=== PATIENT | female | born 1980 | race Caucasian/White ===

== ENCOUNTER 2017-11-25 12:50 | Observation (INO) ==
--- NOTE | 2017-11-25 08:55 | Anesthesia Evaluation PreOp ---
<Tito Hayes - Last Filed: 11/25/17 08:53> Date of Encounter: 11/25/17 - Past History Planned Operation: Removal Hardware Right Ankle Medications and Allergies Benztropine Mesylate 2 mg DAILY 11/25/17 [History] BuPROPion SR (12 HR) [Wellbutrin SR] 300 mg DAILY 11/25/17 [History] Cyproheptadine HCl 4 mg DAILY 11/25/17 [History] Levothyroxine Sodium 75 mcg DAILY 11/25/17 [History] Lyrica 150 mg BID 11/25/17 [History] Metformin HCl [Glucophage] 1,000 mg DAILY 11/25/17 [History] Mirtazapine [Remeron] 30 mg PO DAILY 11/25/17 [History] Montelukast Sodium [Singulair] 10 mg PO DAILY 11/25/17 [History] Perphenazine 16 mg DAILY 11/25/17 [History] Sertraline [Zoloft] 200 mg PO DAILY 11/25/17 [History] 3 Allergy/AdvReac Type Severity Reaction Status Date / Time acetaminophen [From Vicodin] Allergy Itching Verified 11/22/17 08:53 hydrocodone [From Vicodin] Allergy Itching Verified 11/22/17 08:53 latex Allergy Redness of Verified 11/22/17 08:58 Skin Poison Mae Extract Allergy Rash Verified 11/22/17 08:52 cephalexin AdvReac Diarrhea Verified 11/22/17 08:52 NSAIDS (Non-Steroidal AdvReac ulcer Verified 11/22/17 08:52 Anti-Inflamma pantoprazole [From Protonix] AdvReac Diarrhea Verified 11/22/17 08:52 - Meds/Allergy Pre-op Review Medications Reviewed: Yes Allergies Reviewed: Yes Beta Blockers on Current Med List: No Anesthesia Results - Labs Laboratory Tests 11/22/17 09:00 WBC 7.5 Hgb 11.2 L Hct 38.1 Plt Count 223 - Imaging EKG: report reviewed (11/22/2017 SINUS RHYTHM MODERATE INTRAVENTRICULAR CONDUCTION DELAY) <Tammi Orellana - Last Filed: 11/25/17 14:21> Date of Encounter: 11/25/17 Time of Encounter: 14:20 - Past History Pulmonary History: SAMINA Dx, Other [employer] History: Other (depression, diabetic neuropathy) Other Medical History: Denies Any Significant HX, Diabetes Type II, Other ( super morbid obesity., failed gastric bypass) Anesthesia History: No Prior Anesthetic Complications, Past Anesthesia Alcohol Use: none Drug use: none - Meds/Allergy Pre-op Review Medications Reviewed: Yes Allergies Reviewed: Yes Beta Blockers on Current Med List: No Anesthesia Results - Imaging EKG: report reviewed Anesthesia Exam Selected Entries 11/25/17 13:51 Temperature 98.9 F Pulse Rate 76 Respiratory Rate 18 Blood Pressure 144/99 O2 Sat by Pulse Oximetry 98 Weight: 201 kl BMI 74 NPO (# of Hours): over 8 hours - HEENT Pupil (Motor): Pupils equal Mallampati: II Teeth: Edentulous Oral Opening: Greater than 3 - Cardiac Rhythm: Regular Murmur: None - Pulmonary Breath Sounds: bilateral Clear Respiratory Effort: Symmetrical Anesthesia Assess/Plan ASA Score: 3 Modified Mo Scale for Level of Consciousness: Cooperative, oriented, and tranquil Anesthetic Plan: General, Regional, MAC Monitoring Plan: Standard Monitors Recovery Plan: PACU (Consented for both MAC and GA. Patient receptive to regional block and sedation for surgery. SHe has had this before. Agreed to proceed.)
[2017-11-25] MEDS ORDERED: Clindamycin 900 MG/50 ML 900 MG/50 ML IV.SOLN IVPB ONE (13:45)
[2017-11-25] MEDS ORDERED: *HR* Midazolam HCl 5 MG/5 ML VIAL IVP ONE (13:55)
[2017-11-25] MEDS ORDERED: Lidocaine -MPF 2% 2 ML VIAL ONE (13:55)
[2017-11-25] MEDS ORDERED: Propofol 500 MG/50 ML INFUS..BTL ONE (13:57)
[2017-11-25] MEDS ORDERED: Ketamine *HR* 500 MG/10 ML MDV ONE (14:03)
[2017-11-25] MEDS ORDERED: Dexmedetomidine HCl 400 MCG/100 ML MLS IVC ONE (14:03)
[2017-11-25] MEDS ORDERED: Dexamethasone 4 MG/ML VIAL ONE ×3 (14:07→16:41)
[2017-11-25] MEDS ORDERED: *HR* Propofol 200 MG/20 ML VIAL IVP ONE (14:07)
[2017-11-25] MEDS ORDERED: Ondansetron 4 MG/2 ML VIAL ONE ×2 (14:07→16:41)
[2017-11-25] MEDS ORDERED: Bupivacaine/Clonidine Syringe 1 EACH SYRINGE ONE ×2 (14:14→15:25)
[2017-11-25] MEDS: Ringers Solution, Lactated 1,000 ML IVC SCH ×2 (14:22→17:04)
[2017-11-25] MEDS ORDERED: ROPIVACAINE HCL/PF 0.5% 30 ML VIAL ONE (14:27)
--- NOTE | 2017-11-25 14:51 | History & Physical Report ---
Date of Encounter: 11/25/17 Time of Encounter: 14:49 24 Hour HP Update - Instructions Instructions: If the History and Physical is less than 30 days old and was completed prior to A.M. admission and or procedure and has NOT been updated on calendar day of procedure please complete this update prior to performing procedure. - Update Patient reports changes in Medical Condition: No Changes in examination, assessment, or condition: No Changes in Medication: No Preop tests/diagnostics Reviewed: No Pre-Op MRSA Screen: Negative Surgery Remains Indicated: Yes Consent for Planned Operative Procedure(s) Verified: Yes Additions to current History and Physical: Superficial scab anterior right leg. - Pre-Operative Checklist Preoperative Checklist Indicated: Yes Prophylactic Antibiotic Ordered: Yes Home Medications Include Beta Petra: No Beta Petra Taken Today (Day of Surgery): No Beta Petra Taken Yesterday (Day Prior to Surgery): No Is VTE Prophylaxis Indicated?: NO
--- NOTE | 2017-11-25 16:05 | Anesthesia Procedures ---
Date of Encounter: 11/25/17 Time of Encounter: 15:20 Procedures: Anesthesia - Nerve Block Procedure Date: 11/25/17 Time: 15:20 Surgical Procedure: right ankle hardware removal Checklist: Correct Patient Identifier, Correct procedure, History checked Correct side: Right Blood Thinner: No Monitor Applied: EKG, BP, Pulse Oximetry Supplemental Oxygen via Nasal Cannula (L/min): 2 Sedation: Versed (mg): 5 Indication: Post Op Analgesia Block Type: Popliteal Catheter placed: No Sterile Technique: Yes Ultrasound used: Yes Anatomy identified: Yes Visual spread of Local: Yes Neuro Stimulation: Yes Nerve Stimulator Range: 0.2 - 0.4 mA Blood on Needle Aspiration: No Smooth Injection of Local: Yes Pain with Injection of Local: No Prep: Chlorhexadine Needle: 21 x 100 mm Stimuplex Local: Ropivacaine (0.5% with 8 of decadron) Volume (cc): 30 Number of Attempts: 1 Complications: None/effective block Vitals: O2 Sat Height 1.65 m Height 1.65 m Height 1.65 m Weight 201.849 kg Weight 201.849 kg O2 Sat by Pulse Oximetry 97 O2 Sat by Pulse Oximetry 98 Vital Signs Temp Pulse Resp BP Pulse Ox 98.9 F 76 18 144/99 98 11/25/17 13:51 11/25/17 13:51 11/25/17 13:51 11/25/17 13:51 11/25/17 13:51
[2017-11-25] MEDS ORDERED: *HR* Succinylcholine 200 MG/10 ML VIAL IVP ONE (16:19)
[2017-11-25] MEDS ORDERED: *HR* HYDROmorphone (PF) 1 MG/ML SYRINGE IVP PRN (16:30)
[2017-11-25] MEDS ORDERED: *HR* Promethazine 25 MG/ML VIAL IVP PRN (16:30)
[2017-11-25] MEDS ORDERED: *HR* OxyCODONE Immed Rel 5 MG TABLET PO PRN ×3 (16:30→22:31)
[2017-11-25] MEDS ORDERED: *HR* Labetalol 20 MG/4 ML SYRINGE IVP PRN (16:30)
[2017-11-25] MEDS ORDERED: *HR* FentaNYL (PF) 100 MCG/2 ML VIAL ONE (16:37)
[2017-11-25] MEDS ORDERED: EPHEDrine 50 MG/ML VIAL ONE (16:49)
--- NOTE | 2017-11-25 20:18 | Discharge Summary ---
Outpatient Proc Discharge Plan - Plan Additional Instructions: Ice, elevate, remain in protective CAM walker boot. Weightbearing as tolerated in CAM boot. Keep dressing intact until post op visit one. Follow up in one week. Complete course of antibiotics as prescribed (Clindamycin). Take Oxycodone as needed for pain control. Call the office or report to the emergency room with any signs of infection including nausea, vomiting, fever, chills. Prescriptions: Oxycodone HCl [Oxaydo] 5 mg PO Q4HR PRN 5 Days #30 tablet.orl PRN Reason: Pain Clindamycin [Cleocin] 300 mg PO Q8HR 5 Days #15 capsule Home Medications: Benztropine Mesylate 2 mg DAILY 11/25/17 [History] BuPROPion SR (12 HR) [Wellbutrin SR] 300 mg DAILY 11/25/17 [History] Clindamycin [Cleocin] 300 mg PO Q8HR 5 Days #15 capsule 11/25/17 [Rx] Cyproheptadine HCl 4 mg DAILY 11/25/17 [History] Levothyroxine Sodium 75 mcg DAILY 11/25/17 [History] Lyrica 150 mg BID 11/25/17 [History] Metformin HCl [Glucophage] 1,000 mg DAILY 11/25/17 [History] Mirtazapine [Remeron] 30 mg PO DAILY 11/25/17 [History] Montelukast Sodium [Singulair] 10 mg PO DAILY 11/25/17 [History] Oxycodone HCl [Oxaydo] 5 mg PO Q4HR PRN 5 Days #30 tablet.orl 11/25/17 [Rx] Perphenazine 16 mg DAILY 11/25/17 [History] Sertraline [Zoloft] 200 mg PO DAILY 11/25/17 [History]
--- NOTE | 2017-11-25 20:29 | Orthopedic Operative Note ---
Date of procedure: 11/25/17 Pre-op diagnosis: Painful orthopedic hardware Post-op diagnosis: same Procedure: 11/25/17 20:27 Removal of hardware right ankle Anesthesia: GETA Local Anesthetics: 0.5% Sensorcaine HCL SubQ (cc) Surgeon: Kendell Carrington Was there an behavioral assistant present: No Estimated blood loss (cc): 150 Tourniquet Time (Minutes): 180 Specimen: none Condition: stable Disposition: PACU Procedure in Detail: 11/25/17 20:29 INDICATIONS AND CONSENT Eddie Chan is a 37 year old female who originally presented with right ankle pain. She was status post open reduction with internal fixation of a right pilon fracture that occurred in 2014. 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 She failed conservative treatment options and elected to proceed with hardware removal. We discussed the above procedures in detail. This included a discussion on the indications, contraindications, and possible complications including but not limited to: infection, non-healing wound, pain, swelling, bleeding, blood clots, heart complications, nerve injury , vascular injury, loss of limb, loss of life, arthritis, failure to removal all hardware, and need for further surgery. We also reviewed the expected post operative course, including a discussion on the weightbearing status after this procedure. She related understanding of our discussion regarding this surgery. All questions were answered to her satisfaction, and a proper written informed consent was obtained, signed, and placed in the chart. No guarantees were given , stated or implied, as to the outcome of this procedure. PROCEDURE IN DETAIL The patient was seen in the pre-operative holding area by Anesthesia where she was consented for General Anesthesia with regional popliteal fossa and saphenous nerve block. The popliteal fossa and saphenous nerve blocks were performed under ultrasound guidance by Anesthesia in the pre-operative holding area. The patient was then brought back to the operative suite and placed on the operating room table in the supine position. A sign-in was performed. General anesthesia was then initiated per Anesthesia protocol. A well-padded pneumatic right calf tourniquet was then placed. Next, the right lower leg was scrubbed, prepped, and draped in the usual aseptic manner. A [place] Time-Out was performed, and all parties in the room agreed. A total of 15mL of 0.5% marcaine plain was injected to the area of expected surgical incision at the anterolateral right ankle. Next, an Esmarch was used to exsanguinate the right foot. The pneumatic calf tourniquet was inflated to 250 mmHg. Attention was then directed to the anterolateral right ankle where a linear incision was made over the previous surgical scar extending distally past the level of the ankle joint. The incision was carried deep to the level of the tibia and surgical plate fixation, paying careful attention to retract all extensor tendons and neurovascular bundle at the anterior compartment. A islas elevator and osteotome were used to remove the overlying bone from the tibial plate. A total of 4 intact screws were removed from the tibial plate. The remainder of the screws were broken during removal and were left in the tibia without prominence from the outer cortex. The tibial plate was then removed. Given the quality of skin, scar tissue, and concern for skin necrosis if another surgical incision was made , I elected not to remove the fibular plate and screws. The wound was then flushed with copious amounts of normal sterile saline. Next, deep and subcutaneous tissues were re-approximated using 0 Vicryl and 2-0 Vicryl, and the skin was re-approximated under minimal tension using skin sunshine. A dry, sterile dressing was then applied, which consisted of: xeroform, 4x4's, Kerlix fluffs, ABDs, Kerlix roll, and ZACKARY wrap. The right calf tourniquet tourniquet was then deflated, and a proper hyperemic response was noted to the digits on the right foot. Capillary refill time of the toes on the right foot was also noted to be brisk at this time. A sign-out was performed. The patient tolerated anesthesia and the procedure well, and was transferred to PAC-U with vital signs stable and vascular status intact to the right lower extremity. Needle and sponge counts were correct X 2 at the end of the case. Dr. Kendell Carrington was present, scrubbed, and participated in all vital aspects of the procedure. After a brief stay in PAC-U, the patient will be discharged to home with the standard oral and written post-operative instructions. Please see "Patient Instructions" for details.
--- NOTE | 2017-11-25 20:45 | Anesthesia Evaluation Post Op ---
Date of Encounter: 11/25/17 Time of Encounter: 20:44 - Vital Signs Vital Signs: Vital Signs/O2 Sat, Most Current Temp Pulse Resp BP Pulse Ox 98 F 70 18 119/82 97 11/25/17 20:25 11/25/17 20:35 11/25/17 20:35 11/25/17 20:35 11/25/17 20:35 - Lungs Lungs: Clear Ascult./Percussion - Airway Airway: Non-obstructed - Cardiovascular Regular Rate - Mental Status Mental Status: Alert & Oriented, Answers Appropriately - Pain Pain Scale: 0 Pain Scale used: Numeric (1 - 10) - Nausea Vomiting Nausea Vomiting: Not Present - Hydration Hydration: Tolerates oral liquids - Discharge PostOp Status: Transfer Patient to floor
[2017-11-25] MEDS ORDERED: 0.9 % Sodium Chloride 1,000 ML IVC SCH (22:45)
[2017-11-26 11:33] VITALS: BP 118/76
--- NOTE | 2017-11-26 15:04 | Podiatry Progress Note ---
Date of Encounter: 11/26/17 Time of Encounter: 15:13 - Assessment and Plan (1) Urinary retention Current Visit: Yes Status: Acute -patient admitted s/p right ankle removal of hardware - urinary retention requiring straight cath - will consult hospitalist to assist with urinary retention - plan to discharge once voiding spontaneously (2) Urinary retention Current Visit: Yes Status: Acute Subjective Principal diagnosis: s/p ankle surgery Interval history: Patient admitted s/p right ankle removal of hardware due to patient being unable to care for herself at home. Patient had plans to discharge following the procedure, however she has been unable to void spontaneously. Pain has been well-controlled. Dressing is intact. Objective - Vital Signs Vital Signs: Vital Signs Temp Pulse Resp BP Pulse Ox 11/26/17 10:23 98.3 F 73 16 118/76 96 11/26/17 10:01 95 11/26/17 06:40 98 F 76 18 114/83 95 11/26/17 04:06 98.2 F 78 18 112/76 93 11/25/17 23:21 98.0 F 76 18 109/72 92 11/25/17 21:49 97.5 F L 82 22 134/88 92 11/25/17 20:55 98 F 67 18 117/88 94 11/25/17 20:45 67 18 119/80 93 11/25/17 20:35 70 18 119/82 97 11/25/17 20:25 98 F 71 18 124/76 99 11/25/17 20:15 74 18 120/76 97 11/25/17 20:05 68 18 108/62 95 11/25/17 19:55 97.4 F L 71 18 115/66 93 11/25/17 15:05 76 17 146/103 97 Intake and Output 11/25/17 11/26/17 11/26/17 23:59 07:59 15:59 Intake Total 1050 / 1050 Output Total 150 / 150 625 / 625 Balance 900 / 900 -625 / -625 Intake: IV Fluids 1050 / 1050 Lactated Ringers 1,000 ML @ 25 1000 / 1000 mls/hr IVC .Q24H MIGUEL Rx#: [id number] Cleocin Premix 900 MG/50 ML 900 50 / 50 mg In 50 ml @ 100 mls/hr IVPB PREOP ONE Rx#:[id number] Output: Urine 0 / 0 Estimated Blood Loss 150 / 150 Straight Cath 625 / 625 Other: Blood Glucose* 149 104 - Exam Exam: Dressing intact. No strikethrough noted. Capillary Refill: less than 3 seconds - Lab Labs: Abnormal lab results POC Glucose 149 mg/dL (70-99) H 11/25/17 22:36 Consult Discharge Plan - Plan Additional Instructions: Ice, elevate, remain in protective CAM walker boot. Weightbearing as tolerated in CAM boot. Keep dressing intact until post op visit one. Follow up in one week. Complete course of antibiotics as prescribed (Clindamycin). Take Oxycodone as needed for pain control. Call the office or report to the emergency room with any signs of infection including nausea, vomiting, fever, chills. Referrals: Matilde Castellanos CNP [Primary Care Provider] -
== END 2017-11-26 17:08 | disposition home or self-care (01) ==
LOC: 3NENU → SAMDAYPAV 12:50
PROVIDERS: ADMIT Podiatrist Foot Surgery; ATTEND Student in an Organized Health Care Education/Training Program